=== PATIENT | female | born 2000 | race African-American/Black ===

== ENCOUNTER 2022-09-16 12:40 | Observation (INO) ==
--- NOTE | 2022-09-16 13:00 | ED Triage Note ---
Date of Service September 16, 2022 History of Present Illness This patient was briefly evaluated while in triage. An abbreviated physical exam was performed. This patient is a 22-year-old Female who was referred to the ED by her PCP for a blood transfusion and abnormal labs. Patient reports that she initially saw her PCP for weakness. She denies any shortness of breath, chest pain, abdominal pain or other concerning symptoms. The patient has not had any prior history of anemia or blood transfusions. She denies any recent rectal bleeding or dark stools. Physical Exam CONSTITUTIONAL: Healthy and well nourished. HEENT: Pupils equal, round and reactive. RESPIRATORY: Clear to auscultation bilaterally with no wheezing, crackles, rhonchi or stridor. CARDIOVASCULAR: Regular rate and rhythm with no murmurs, rubs or gallops. INTEGUMENTARY: No rash or other significant dermatologic conditions noted. HEMATOLOGIC: No ecchymosis or petechiae. PSYCHIATRIC: Positive affect. NEUROLOGIC: No focal neurologic deficits noted. Initial orders for labs and / or imaging were placed and patient was placed in the waiting area until a bed is available. Please see further documentation for the full ED course.
[2022-09-16] MEDS ORDERED: SODIUM CHLORIDE 0.9% 250 ML IV PRN ×2 (13:01→13:02)
[2022-09-16 13:55] LABS: Pregnancy Test, Serum Negative (Negative)
--- NOTE | 2022-09-16 14:00 | XRay Report ---
SINGLE VIEW CHEST CLINICAL HISTORY: Generalized weakness. FINDINGS: An AP, portable, upright chest radiograph is obtained. No prior studies are available for c omparison at the time of dictation. The cardiomediastinal silhouette is unremarkable. The lungs and p leural spaces are clear. No pneumothorax is seen. The bony thorax is grossly intact. IMPRESSION: No active disease in the chest. ACT 112: Negative or not required by law. Electronically signed by: Dejon Pitt M.D. 09/16/2022 1:59 PM
[2022-09-16 14:02] LABS: Alanine Aminotransferase 8 U/L (7-52); Albumin Globulin Ratio 1.2 (0.9-2); Alkaline Phosphatase 68 U/L (34-104); Anion Gap 4 (3-11); Aspartate Aminotransferase 20 U/L (13-39); BUN Creatinine Ratio 13.6 (10-20); Bilirubin,Total 0.2 mg/dl (0.2-1.0); Blood Urea Nitrogen 8 mg/dl (6-23); Calcium 8.7 mg/dl (8.6-10.3); Carbon Dioxide 25 mmol/L (21-32); Chloride 107 mmol/L (98-107); Creatinine Clr Calc Pharmacy 148.9 ml/min; Est GFR (African American) 148.7 ml/min; Est GFR (Non-African American) 128.3 ml/min; Globulin 3.3 gm/dl (2.5-4.0); Glucose 102 mg/dl (70-99(Fasting)); Magnesium 1.9 mg/dl (1.7-2.4); Potassium 3.3 mmol/L (3.5-5.1); Sodium 136 mmol/L (136-145); Total Protein 7.3 gm/dl (6.0-8.3)
[2022-09-16 14:03] LABS: Troponin I High Sensitivity < 2.3 pg/ml (0-14)
[2022-09-16 14:06] LABS: Hematocrit (blood only) 19.1 % (37.0-47.0); Hemoglobin 4.9 g/dl (12.0-16.0); Mean Corpuscular Hemoglobin 15.8 pg (25.0-34.0); Mean Corpuscular Hgb Conc 25.7 g/dL (32.0-36.0); Mean Corpuscular Volume 61.6 fL (80.0-100.0); Mean Platelet Volume 9.1 fL (9.4-12.4); Platelet Count 509 K/uL (130-400); RDW Coefficient of Variation 31.6 % (11.5-14.5); RDW Standard Deviation 63.8 fL (36.4-46.3); White Blood Count 6.84 K/ul (4.8-10.8)
[2022-09-16 14:09] LABS: Prothrombin Time 11.4 Seconds (9.0-12.0)
[2022-09-16] MEDS ORDERED: SODIUM CHLORIDE 0.9% 500 ML IV ONE (14:16)
[2022-09-16 14:19] LABS: Anisocytosis Present; Basophils # (auto) 0.04 K/uL (0-0.2); Basophils % (auto) 0.6 %; Eosinophils # (auto) 0.03 K/uL (0-0.50); Eosinophils % (auto) 0.4 %; Hypochromasia Present; Immature Granulocytes # (auto) 0.02 K/uL (0.01-0.20); Immature Granulocytes % (auto) 0.3 %; Lymphocytes # (auto) 1.77 K/uL (1.2-3.4); Lymphocytes % (auto) 25.9 %; Microcytosis Present; Monocytes # (auto) 0.56 K/uL (0.11-0.59); Monocytes % (auto) 8.2 %; Neutrophils # (auto) 4.42 K/uL (1.40-6.50); Neutrophils % (auto) 64.6 %; Polychromasia 1+; Tear Drop Cells 2+
--- NOTE | 2022-09-16 14:34 | History & Physical Report ---
Date of Service September 16, 2022 Assessment & Plan (1) Microcytic anemia: Plan: Suspect relatively chronic based on history and clearly compensating well symptomatically for severity of anemia - with acute worsening ?due to recent heavy periods Ferritin, Iron studies, B12, folate, retic count, LDH, peripheral smear Suspect iron deficiency anemia - however if not iron deficient will correct anemia and then run labs for thalassemia and consult hematology Transfuse 2 units packed RBCs, repeat CBC following this. Aim Hgb > 7. (2) Irritable bowel syndrome: Plan: Self diagnosed - given microcytic anemia will get FOB. If positive will get GI consult inpatient. If negative consider outpatient GI consult for colonoscopy. (3) Heavy periods: Plan: Just for the last 2 months. Unclear cause of this. Follow up [employer]. test negative. (4) Shortness of breath on exertion: Plan: Presumably secondary to anemia. Monitor after blood transfusions. (5) Vitamin D deficiency: Plan: Noted on outpatient labs, start supplementation Plan VTE Prophyalxis - contraindicated Diet - regular Disposition - admit to med/tele Admission and Anticipated Discharge Date Admission Date: September 16, 2022 History of Present Illness Chief Complaint: Abnormal labs Primary Care Provider: ANA PAULA Cedillotamara Varner is a 22 year old female who presents to the ER with shortness of breath on exertion and severe anemia on outpatient labs. She reports ongoing shortness of breath on exertion for the last 4-5 years for which she has not sought medical attention. This has significantly progressed over the last 2 weeks with associated lightheadedness over the last week. No chest pain. She self diagnosed herself as having IBS with change bowel habits and cramping around the same time but has never had a colonoscopy. No melena or hematochezia. No hematemesis, hemoptysis, easily bruising or petechia. She reports a heavy period for the last 2 months but were normal prior to this. Lasted 4-5 days with heavier bleeding during those days. Last menstrual period August 27. No family history of anemia, sickle cell or thalassemia. Allergies Allergy/AdvReac Type Severity Reaction Status Date / Time No Known Allergies Allergy Verified 09/16/22 15:37 Home Medications Medication Instructions Recorded Confirmed Type ibuprofen 200 mg tablet 400 mg PO BID PRN Migraine Headache 09/16/22 09/16/22 History loperamide 2 mg tablet 2 mg PO Q8H PRN Diarrhea 09/16/22 09/16/22 History Past Med/Surg History Medical History No significant past medical history Surgical History No pertinent past surgical history Family History Aunt Breast cancer Father Hypertension Grandfather (Maternal) Diabetes Sister Diabetes Grandfather (Paternal) Glaucoma Denies family history of Ovarian cancer Prostate cancer Myocardial infarction Colorectal cancer Social History Smoking Status: Never smoker Second Hand Exposure: No; Do You Dip or Chew Tobacco: No; Hx Alcohol Use: No Hx Substance Use: No Communication Ability: Effective Beliefs That Will Affect Care: None marital status: Single Current Living Situation: Family Current Living Situation Comment: lives with sister current occupational status: employed current occupation: [employer] Other Information That Helps Us Care for You: No Feels Safe at Home: Yes Safety Concerns: Feels Safe At This Time Childhood Exposure to Second-Hand Smoke: No Dental Care, Regularly: No Physical Activity Frequency: Does not Exercise Seatbelt Use: always Sunscreen Use: Yes Assistive Devices: None Review of Systems Review of Systems: All systems reviewed & are unremarkable except as noted in HPI & below Physical Exam Constitutional: WD/WN, vitals as above Eyes: + anicteric sclerae; normal pupil size ENMT: external ear and nose normal, oropharynx normal Respiratory: normal respiratory effort, lungs clear to auscultation Cardiovascular: RRR, no murmur, no edema Gastrointestinal (Abdomen): normal bowel sounds, soft, nontender, no hepatosplenomegaly Skin: no rashes, warm and dry Neurologic: moves all extremities and awake; not confused Psychiatric: A+Ox3, euthymic affect Results & Data Results & Data Vital Signs (Past 12 Hours) Vital Signs Temp Pulse Pulse Resp BP BP Pulse Ox 09/16/22 13:34 110 H 09/16/22 13:30 125 H 18 149/94 H 100 09/16/22 13:28 100 09/16/22 12:57 36.4 C L 99 H 20 146/77 H 100 O2 Del Method 09/16/22 13:34 09/16/22 13:30 Room Air 09/16/22 13:28 Room Air 09/16/22 12:57 Room Air Laboratory Results Abnormal lab results 09/16/22 09/16/22 09/16/22 Range/Units 13:10 13:10 13:16 RBC 3.10 L (4.20-5.40) M/uL Hgb 4.9 L* (12.0-16.0) g/dl Hct 19.1 L* (37.0-47.0) % MCV 61.6 L (80.0-100.0) fL MCH 15.8 L (25.0-34.0) pg MCHC 25.7 L (32.0-36.0) g/dL RDW Std Deviation 63.8 H (36.4-46.3) fL RDW Coeff of Elver 31.6 H (11.5-14.5) % Plt Count 509 H (130-400) K/uL MPV 9.1 L (9.4-12.4) fL Potassium 3.3 L (3.5-5.1) mmol/L Creatinine 0.59 L (0.6-1.2) mg/dl Glucose 102 H (70-99(Fasting)) mg/dl Crossmatch See Detail Diagnostic Findings SINGLE VIEW CHEST CLINICAL HISTORY: Generalized weakness. FINDINGS: An AP, portable, upright chest radiograph is obtained. No prior studies are available for comparison at the time of dictation. The cardiomediastinal silhouette is unremarkable. The lungs and pleural spaces are clear. No pneumothorax is seen. The bony thorax is grossly intact. IMPRESSION: No active disease in the chest. Medications Administered ER Medications Given: NSS 500 ml bolus Transfuse 2 units packed RBCs ECG Rate (beats per minute): 95 Rhythm: normal sinus Findings: no acute ischemic change Comparison ECG Date: no prior available Code Status & VTE Plan Code Status Full VTE Prophylaxis Plan VTE Prophylaxis will be ordered: No Reason for no VTE drug order: Contraindicated Reason for no VTE mechanical prophylaxis: Treatment not indicated PG Care Time/CCT Total # of Minutes Spent Total Time Spent with Patient: Total time spent is greater than 50% in coordination of care (as documented) at patient's floor/unit and/or counseling patient: Coding Level of Care Code 62523 INT INP/OBS CARE 2MIN Diagnoses Microcytic anemia D50.9 Irritable bowel syndrome K58.9 Heavy periods N92.0 Shortness of breath on exertion R06.02 Vitamin D deficiency E55.9
[2022-09-16 15:05] LABS: Partial Thromboplastin Ratio 0.9; Partial Thromboplastin Time 26.2 Seconds (21.0-31.0)
[2022-09-16 15:26] LABS: Appearance Urine Clear (Clear); Bacteria Urine Automated Negative (Negative); Bilirubin Urine Negative (Negative); Blood Urine Negative (Negative); Cast Urine Automated 0 /lpf (0-5); Color Urine Yellow; Glucose Urine UA Negative (Negative); Ketones Urine Negative (Negative); Leukocyte Esterase Urine Trace (Negative); Nitrite Urine Negative (Negative); Protein Urine Negative (Negative); RBC Urine Automated 0-4 /hpf (0-4); Specific Gravity Urine 1.006 (1.000-1.030); Urobilinogen Urine Negative (Negative); pH Urine 6.5 (4.5-7.5)
[2022-09-16 15:43] LABS: Reticulocyte % 0.6 % (0.5-2.0); Reticulocytes # 0.02 10^6/uL (0.02-0.10)
[2022-09-16 16:43] LABS: Iron < 10 mcg/dl (35-150); Unsaturated Iron Binding Cap 429 mcg/dl (155-355)
[2022-09-16 17:01] LABS: Ferritin 2.7 ng/ml (8-388)
[2022-09-16] MEDS ORDERED: ACETAMINOPHEN 325 MG TAB PO PRN (17:16)
[2022-09-16] MEDS ORDERED: POTASSIUM CHLORIDE CRTAB 20 MEQ TABCR PO STA (17:32)
[2022-09-17 00:01] LABS: Hematocrit (blood only) 25.6 % (37.0-47.0); Hemoglobin 7.1 g/dl (12.0-16.0); Mean Corpuscular Hemoglobin 18.9 pg (25.0-34.0); Mean Corpuscular Hgb Conc 27.7 g/dL (32.0-36.0); Mean Corpuscular Volume 68.3 fL (80.0-100.0); Mean Platelet Volume 9.7 fL (9.4-12.4); Platelet Count 425 K/uL (130-400); Red Blood Count 3.75 M/uL (4.20-5.40)
--- NOTE | 2022-09-17 00:11 | Communication Note ---
Date of Service: September 16, 2022 Iron undetectable, Ferritin 2.7. Diagnosis: Iron deficiency anemia - suspected blood loss either GI or heavy periods. FOB pending. Consider iron infusions giv en iron deficit around 1660mg and would also need to replenish stores. Will defer this until hemoglobin goal has been reached.
[2022-09-17 07:37] LABS: Anion Gap 5 (3-11); BUN Creatinine Ratio 14.8 (10-20); Blood Urea Nitrogen 8 mg/dl (6-23); Calcium 8.5 mg/dl (8.6-10.3); Carbon Dioxide 23 mmol/L (21-32); Chloride 108 mmol/L (98-107); Creatinine Clr Calc Pharmacy 162.1 ml/min; Est GFR (African American) > 150.0 ml/min; Est GFR (Non-African American) 132.1 ml/min; Glucose 77 mg/dl (70-99(Fasting)); Potassium 3.9 mmol/L (3.5-5.1); Sodium 136 mmol/L (136-145)
[2022-09-17 07:56] LABS: Hematocrit (blood only) 25.7 % (37.0-47.0); Hemoglobin 7.2 g/dl (12.0-16.0); Mean Corpuscular Volume 67.8 fL (80.0-100.0); Mean Platelet Volume 9.2 fL (9.4-12.4); Platelet Count 387 K/uL (130-400); Platelet Estimate Normal (Normal); RDW Coefficient of Variation 32.6 % (11.5-14.5); RDW Standard Deviation 75.2 fL (36.4-46.3); Red Blood Count 3.79 M/uL (4.20-5.40); White Blood Count 5.93 K/ul (4.8-10.8)
[2022-09-17] MEDS ORDERED: CHOLECALCIFEROL 1,000 UNITS 25 MCG TAB PO SCH (09:00)
[2022-09-17] MEDS ORDERED: IRON SUCROSE 300 MG in SODIUM CHLORIDE 0.9% 250 ML IV ONE (09:30)
[2022-09-17 12:59] LABS: C Reactive Protein < 0.50 mg/dl (0-0.5)
--- NOTE | 2022-09-18 05:09 | Electrocardiogram Report ---
Test Reason : Blood Pressure : / mmHG Vent. Rate : 095 BPM Atrial Rate : 095 BPM P-R Int : 190 ms QRS Dur : 078 ms QT Int : 358 ms P-R-T Axes : 012 014 034 degrees QTc Int : 449 ms Normal sinus rhythm Minimal voltage criteria for LVH, may be normal variant ( R in aVL ) Borderline ECG No previous ECGs available Confirmed by Jean Hunt ([id number]) on 09/18/2022 5:09:23 AM Referred By: Confirmed By:Jean Hunt
--- NOTE | 2022-09-18 09:38 | Discharge Summary ---
Date of Service September 17, 2022 Admission HPI Per Admitting Provider Shahriar Varner is a 22 year old female who presents to the ER with shortness of breath on exertion and severe anemia on outpatient labs. She reports ongoing shortness of breath on exertion for the last 4-5 years for which she has not sought medical attention. This has significantly progressed over the last 2 weeks with associated lightheadedness over the last week. No chest pain. She self diagnosed herself as having IBS with change bowel habits and cramping around the same time but has never had a colonoscopy. No melena or hematochezia. No hematemesis, hemoptysis, easily bruising or petechia. She reports a heavy period for the last 2 months but were normal prior to this. Lasted 4-5 days with heavier bleeding during those days. Last menstrual period August 27. No family history of anemia, sickle cell or thalassemia. Principal Diagnosis iron deficiiecy anemia Discharge Exam Constitutional WD/WN, vitals as above Eyes + anicteric sclerae; normal pupil size ENMT external ear and nose normal, oropharynx normal Respiratory normal respiratory effort, lungs clear to auscultation Cardiovascular RRR, no murmur, no edema Gastrointestinal (Abdomen) normal bowel sounds, soft, nontender, no hepatosplenomegaly Skin no rashes, warm and dry Neurologic moves all extremities and awake; not confused Psychiatric A+Ox3, euthymic affect Discharge Data Allergies Allergy/AdvReac Type Severity Reaction Status Date / Time No Known Allergies Allergy Verified 09/16/22 15:37 Consultations 09/16/22 14:16 ED Decision to Admit Stat Hospital Course (1) Microcytic anemia: Suspect relatively chronic based on history and clearly compensating well symptomatically for severity of anemia - with acute worsening -likely due to recent heavy periods Blood work appeared to be mainly iron deficiency anemia as ferritin, was low, TIBC was high, iron levels were low Received 2 PRBCs. Hemoglobin now over 7. Will recommend to hold off CT scan of abd pelvis until followup with GI and grain miller helper as an outpatient. Patient will be discharged on iron supplements and Oral contraceptive pills. (2) Irritable bowel syndrome: Self diagnosed - given microcytic anemia will get FOB. If positive will get GI consult inpatient. If negative consider outpatient GI consult for colonoscopy. (3) Heavy periods: Just for the last 2 months. Unclear cause of this. Follow up [employer]. test negative. (4) Shortness of breath on exertion: Presumably secondary to anemia. Monitor after blood transfusions. (5) Vitamin D deficiency: Noted on outpatient labs, start supplementation Plan VTE Prophyalxis - contraindicated Diet - regular Total Time Total Time Spent Total Time Spent (In Minutes): 32 Discharge Plan Discharge Items Patient Disposition: Home - Self-Care Reason For Visit: SEVERE ANEMIA Discharge Diagnosis: iron deficiency anemia Activity: Resume your previous activity Non-emergency contact: Primary Care Provider Call non-emergency contact if: you have any medication questions Follow-up/Referrals: Cindy Bernard CRNP [Primary Care Provider] - Diet: Regular Ambulatory Orders: Hemoglobin and Hematocrit (Routine) Timeframe: [id number] Location: Determined by Patient Ordered By: Barry Collier Attending Provider Instructions: Recommend followup with your PCP in 1-2 weeks. WIll recommend holding off ct scan as we have more information as to why your Heart rate was elevated. WIll recommend followup with grain miller helper and GI to discuss about your heavy period and your abdominal symptoms (possible irritable bowel) Pending Studies at Discharge: No Stand-Alone Forms: My [facility]rock Advisor, Smoking Cessation Medications and DC Order Prescriptions: New norethindrone-e.estradiol-iron [Loestrin Fe 1.5/30 (28-Day)] 1.5 mg-30 mcg (21)/75 mg (7) tablet 1 tab PO DAILY Qty: 84 0RF Rx Instructions: Start the Friday after your period starts. If period starts on a Friday, ok to start on that day. ferrous sulfate 324 mg (65 mg iron) tablet,delayed release (DR/EC) 324 mg PO .MWF Qty: 15 0RF Continued loperamide 2 mg Tablet 2 mg PO Q8H PRN (Reason: Diarrhea) Rx Instructions: administer after each loose stool until symptoms controlled; do not exceed 8 mg per 24 hrs ibuprofen 200 mg Tablet 400 mg PO BID PRN (Reason: Migraine Headache) Discharge Orders: Discharge Order (Routine); Ordered 09/17/22 Ordered By: Barry Guaman Admission Data Admit Date/Time: 09/16/22 14:51 Attending Provider: Barry Guaman Admit Provider: Diego Alonzo Primary Care Provider: Cindy Bernard Other Providers: Diego Alonzo Other Interventions: Discharge Summary Assessment (RN) Last Done: 09/17/22 16:12 Coding Level of Care Code 10343 INP/OBS DISCH >30 MIN Diagnoses Microcytic anemia D50.9 Irritable bowel syndrome K58.9 Heavy periods N92.0 Shortness of breath on exertion R06.02 Vitamin D deficiency E55.9
== END 2022-09-17 16:58 | disposition home or self-care (01) ==
LOC: ED 12:40 → SUATTDRO 14:51 → 2S 14:51 → INTOOBSV 14:51 → 2S 17:22